=== PATIENT | female | born 1940 | race African-American/Black ===

== ENCOUNTER 2020-02-26 05:46 | Emergency (ER) | payer OTHER ==
[~2020-02-26] VITALS: Ht 170.2 cm; Wt 59.0 kg
[2020-02-26] MEDS ORDERED: CLONIDINE 0.2MG TABLET PO ONE (07:30)
[2020-02-26 08:46] VITALS: BP 150/79
== END 2020-02-26 09:40 | disposition home or self-care (01) ==
LOC: ER 05:46
DX: E11.649 Type 2 diabetes mellitus with hypoglycemia without coma (principal); I10 Essential (primary) hypertension; Z79.4 Long term (current) use of insulin
CPT/HCPCS: 82962; 93005; 99283

== ENCOUNTER 2024-02-12 07:09 | Inpatient (IN) | payer OTHER, MEDICAID, MEDICARE ==
[~2024-02-12] VITALS: Ht 157.5 cm; Wt 45.8 kg
[2024-02-12] VITALS (35 sets, daily range): BP systolic 87–141; BP diastolic 46–130; PULSE 74–101; RESP 11–31; TEMP 36.83628–36.974; O2SAT 94–100
[2024-02-12 07:38] LABS: HEMATOCRIT. 35.1 % (36.0-48.0); HEMOGLOBIN. 10.6 g/dL (12.0-16.0); MEAN CORPUSCULAR HEMOGLOBIN 25.9 pg (28.0-32.0); MEAN CORPUSCULAR HGB CONC 30.3 g/dL (31.0-37.0); MEAN CORPUSCULAR VOLUME 85.6 fL (81.0-99.0); MEAN PLATELET VOLUME 8.1 fl (7.4-10.4); PLATELET 482 x1000/uL (130-400); RED CELL DISTRIBUTION WIDTH 16.4 % (11.6-14.6); WHITE BLOOD COUNT 13.5 x1000/uL (4.5-11.0)
[2024-02-12] MEDS: PIPERACILLIN/TAZO 3.375G/50ML 50 ML IV STA (07:42)
[2024-02-12] MEDS: SODIUM CHLORIDE 0.9% 1,000 ML IV ONE (07:42)
[2024-02-12 07:48] LABS: CHLORIDE 104 mEq/L (98-107); SODIUM 150 mEq/L (136-145)
[2024-02-12 07:49] LABS: CALCIUM 9.7 mg/dL (8.7-10.4)
[2024-02-12] MEDS: ACETAMINOPHEN 650MG SUPP PR SCH (07:50)
[2024-02-12 07:54] LABS: CREATININE 2.2 mg/dL (0.6-1.0); INR 0.9; PROTHROMBIN TIME 10.6 sec (9.6-11.0); UREA NITROGEN BLOOD 87 mg/dL (9-23)
[2024-02-12 07:56] LABS: ALANINE AMINOTRANSFERASE 19 IU/L (10-49); ALBUMIN 3.7 g/dL (3.2-4.8); ASPARTATE AMINOTRANSFERASE 21 IU/L (<34); BILIRUBIN TOTAL 0.2 mg/dL (0.1-1.0); PROTEIN TOTAL 8.4 g/dL (6.0-8.3)
[2024-02-12 07:58] LABS: DIFFERENTIAL COMMENT 1
[2024-02-12 08:04] LABS: GLUCOSE 660 mg/dL (70-105); TROPONIN I HIGH SENSITIVITY 176 ng/L (3.0-34)
[2024-02-12 08:05] LABS: LACTIC ACID 6.9 mmol/L (0.4-2.0)
[2024-02-12 08:12] LABS: CARBON DIOXIDE 26 mEq/L (21-32)
[2024-02-12] MEDS: VANCOMYCIN 1G PREMIX 200 ML IV STA (08:15)
[2024-02-12 08:20] LABS: BETA HYDROXYBUTYRATE 4.9 mMol/L (0.0-0.3)
[2024-02-12] MEDS ORDERED: SODIUM CHLORIDE 0.9% 1,000 ML IV ONE (09:00)
[2024-02-12] MEDS ORDERED: BLOOD SUGAR DIAGNOSTIC STRIP TEST PRN ×2 (09:00→19:15)
[2024-02-12] MEDS ORDERED: MAGNESIUM 2 G PREMIX 50 ML IV PRN ×2 (09:00→19:15)
[2024-02-12] MEDS ORDERED: SODIUM PHOSPHATE 15 MMOL in SODIUM CHLORIDE 0.9% 245 ML IV PRN ×2 (09:00→19:15)
[2024-02-12] MEDS ORDERED: DEXTROSE 50% WATER 50ML SYRINGE IV PRN ×3 (09:00→19:15)
[2024-02-12] MEDS ORDERED: BLOOD SUGAR DIAGNOSTIC STRIP TEST SCH ×2 (09:00→14:30)
[2024-02-12] MEDS ORDERED: INSULIN REGULAR (DRIP) 100 UNITS in SODIUM CHLORIDE 0.9% 99 ML IV SCH ×2 (09:00→19:15)
[2024-02-12 09:10] LABS: CLARITY URINE TURBID (CLEAR); COLOR URINE YELLOW (YELLOW); PH URINE 6.5 (4.5-8.0); PROTEIN URINE 2+ (NEGATIVE); SPECIFIC GRAVITY URINE 1.022 (1.005-1.030)
[2024-02-12 09:11] LABS: GLUCOSE URINE 2+ (NEGATIVE); KETONES URINE TRACE (NEGATIVE); LEUKOCYTE ESTERASE URINE 3+ (NEGATIVE); NITRITE URINE NEGATIVE (NEGATIVE); OCCULT BLOOD URINE 3+ (NEGATIVE); UROBILINOGEN URINE 0.2 E.U./dL (0.2-1.0)
[2024-02-12 09:15] LABS: BG BASE EXCESS -0.3 mmol/L (-2.0-3.0); BG CARBOXYHEMOGLOBIN 0.3 % (0.5-1.5); BG DEOXYHEMOGLOBIN 0.4 % (0.0-5.0); BG FRACTION INSPIRED OXYGEN 100; BG HCO3 ACT 23.8 mmol/L (21.0-28.0); BG METHEMOGLOBIN 0.3 % (0.5-1.5); BG OXYGEN SATURATION 99.6 % (94.0-98.0); BG PCO2 36.5 mmHg (32.0-45.0); BG PH 7.432 (7.350-7.450); BG PO2 174.7 mmHg (83.0-108.0); BG SAMPLE SITE RIGHT RADIAL; BG TOTAL HEMOGLOBIN 9.6 g/dL (12.0-16.0); BG VENT MODE MASK - NRB
[2024-02-12] MEDS: NOREPINEPHRINE 8MG/250ML PMX 250 ML IV ONE (09:17)
[2024-02-12] MEDS: SODIUM CHLORIDE 0.9% 1,000 ML IV SCH (09:17)
[2024-02-12 09:29] LABS: BACTERIA URINE 3+; SQUAMOUS EPITHELIAL CELL URINE 1+ /lpf (RARE/1+); WBC URINE TNTC /hpf (0-2); YEAST URINE NONE SEEN
[2024-02-12] MEDS: LACTATED RINGERS 1,000 ML IV STA (09:32)
[2024-02-12 09:43] LABS: PHOSPHORUS 6.9 mg/dL (2.5-4.9)
[2024-02-12] MEDS: INSULIN REGULAR (HUMULIN R) 1000UNITS/10ML VIAL IV ONE ×2 (09:58→11:13)
[2024-02-12 10:13] LABS: ANISOCYTOSIS 1+; PLATELET ESTIMATE INCREASED; ROULEAUX 1+
[2024-02-12 11:13] LABS: TROPONIN I HIGH SENSITIVITY 330 ng/L (3.0-34)
[2024-02-12] MEDS ORDERED: MAGNESIUM/ALUMINUM HYDROXIDE/SIMETHICONE 30ML UDC PO PRN (12:30)
[2024-02-12] MEDS ORDERED: INSULIN REGULAR 100U/100ML PMX 100 ML IV SCH ×2 (12:30→13:00)
[2024-02-12] MEDS ORDERED: ACETAMINOPHEN 650MG SUPP PR PRN ×2 (12:30)
[2024-02-12] MEDS ORDERED: GUAIFENESIN 200MG/10ML SUGAR FREE UDC PO PRN (12:30)
[2024-02-12] MEDS ORDERED: DOCUSATE SODIUM 100MG CAPSULE PO PRN (12:30)
[2024-02-12] MEDS ORDERED: NITROGLYCERIN 0.4MG TABLET SL SL PRN (12:30)
[2024-02-12] MEDS ORDERED: ONDANSETRON HCL 4MG/2ML INJ IV PRN (12:30)
[2024-02-12] MEDS ORDERED: IPRATROPIUM/ALBUTEROL 0.5-3(2.5)MG/3ML NEB NEB PRN (12:30)
[2024-02-12] MEDS ORDERED: MEROPENEM 1,000 MG in SODIUM CHLORIDE 0.9% 100 ML IV SCH (12:30)
[2024-02-12] MEDS: LACTATED RINGERS 1,000 ML IV SCH (13:00)
[2024-02-12] MEDS: BLOOD SUGAR DIAGNOSTIC STRIP TEST SCH ×2 (13:02→20:26)
[2024-02-12] MEDS: MEROPENEM 500MG/50ML IV SCH (13:34)
[2024-02-12] MEDS: ENOXAPARIN 30MG/0.3ML SYR SUBCUT SCH (13:34)
[2024-02-12] MEDS: PANTOPRAZOLE SODIUM 40 MG/VIAL IV SCH (13:35)
[2024-02-12] MEDS: INSULIN REGULAR 100U/100ML PMX 100 ML IV SCH (13:35)
[2024-02-12] MEDS: KCL 20MEQ/100ML PREMIX 100 ML IV PRN ×2 (13:59→19:16)
[2024-02-12 14:39] LABS: IRON 20 ug/dL (50-170)
[2024-02-12 14:40] LABS: TRIGLYCERIDE 111 mg/dL (0-150)
[2024-02-12 14:41] LABS: LACTATE DEHYDROGENASE 356 IU/L (120-246); LDL CHOLESTEROL 70 mg/dL (5-100)
[2024-02-12 14:42] LABS: CHOLESTEROL 136 mg/dL (<200); HDL CHOLESTEROL 47 mg/dL (>65); TOTAL IRON BINDING CAPACITY 537 ug/dl (250-425)
[2024-02-12 14:45] LABS: FERRITIN 25 ng/mL (10-291); FOLIC ACID (FOLATE) SERUM > 20.00 ng/mL (>5.38)
[2024-02-12 14:46] LABS: THYROID STIMULATING HORMONE 0.87 uIU/mL (0.55-4.78)
[2024-02-12 14:58] LABS: VITAMIN B12 SERUM > 2000 pg/mL (211-911)
[2024-02-12] MEDS: AZITHROMYCIN 500 MG TABLET PO SCH (15:03)
[2024-02-12 17:32] LABS: CARBON DIOXIDE 27 mEq/L (21-32); CHLORIDE 112 mEq/L (98-107); POTASSIUM 4.2 mEq/L (3.5-5.1); SODIUM 153 mEq/L (136-145)
[2024-02-12 17:33] LABS: CALCIUM 9.1 mg/dL (8.7-10.4)
[2024-02-12 17:38] LABS: CREATININE 1.9 mg/dL (0.6-1.0); GLUCOSE 373 mg/dL (70-105); UREA NITROGEN BLOOD 70 mg/dL (9-23)
[2024-02-12 17:39] LABS: CREATINE KINASE MB FRACTION 3.8 ng/mL (0.5-3.6)
[2024-02-12 17:40] LABS: PHOSPHORUS 4.3 mg/dL (2.5-4.9)
[2024-02-12] MEDS ORDERED: POTASSIUM CHLORIDE 40 MEQ in SODIUM CHLORIDE 0.9% 230 ML IV PRN ×2 (18:00→19:15)
[2024-02-12] MEDS: DEXAMETHASONE 10 MG/ML VIAL IV SCH (18:07)
[2024-02-12] MEDS: NOREPINEPHRINE 8MG/250ML PMX 250 ML IV PRN (18:20)
[2024-02-12] MEDS ORDERED: DEXT 5%/0.45% NACL 1000ML 1,000 ML IV SCH (19:00)
[2024-02-12] MEDS ORDERED: KCL 20MEQ/100ML PREMIX 100 ML IV PRN (19:00)
[2024-02-12] MEDS ORDERED: DEXT 5%/LACTATED RINGERS 1,000 ML IV SCH (19:00)
[2024-02-12] MEDS ORDERED: SODIUM CHLORIDE 0.9% 1,000 ML IV SCH (19:15)
[2024-02-12] MEDS ORDERED: DEXT 5%/0.9% NACL 1,000 ML IV SCH (19:15)
[2024-02-12] MEDS: DEXTROSE 50% WATER 50ML SYRINGE IV PRN (21:24)
[2024-02-12] MEDS: ATORVASTATIN CALCIUM 40MG TABLET PO SCH (21:25)
[2024-02-12 22:23] LABS: CREATINE KINASE MB FRACTION 3.1 ng/mL (0.5-3.6)
[2024-02-12 23:01] LABS: CHLORIDE 115 mEq/L (98-107); POTASSIUM 3.7 mEq/L (3.5-5.1); SODIUM 153 mEq/L (136-145)
[2024-02-12 23:02] LABS: CALCIUM 8.6 mg/dL (8.7-10.4); CARBON DIOXIDE 33 mEq/L (21-32)
[2024-02-12 23:07] LABS: CREATININE 1.4 mg/dL (0.6-1.0); GLUCOSE 203 mg/dL (70-105); UREA NITROGEN BLOOD 71 mg/dL (9-23)
[2024-02-12] MEDS: DEXT 5%/0.45% NACL KCL 40MEQ/L 1,000 ML IV SCH (23:45)
[2024-02-13] VITALS (52 sets, daily range): BP systolic 90–138; BP diastolic 47–95; PULSE 65–98; RESP 10–28; TEMP 36.55848–36.83628; O2SAT 97–100
[2024-02-13] MEDS ORDERED: POTASSIUM CHLORIDE 20 MEQ in DEXT 5% WATER 90 ML IV ONE (00:30)
[2024-02-13] MEDS ORDERED: KCL 20MEQ/100ML PREMIX 100 ML IV NR (00:45)
[2024-02-13] MEDS: DEXT 5%/0.45% NACL KCL 20MEQ/L 1,000 ML IV SCH (01:01)
[2024-02-13] MEDS: INSULIN GLARGINE 100 UNITS/ML SUBCUT NR (01:03)
[2024-02-13 05:32] LABS: CARBON DIOXIDE 30 mEq/L (21-32); CHLORIDE 114 mEq/L (98-107); POTASSIUM 4.3 mEq/L (3.5-5.1); SODIUM 151 mEq/L (136-145)
[2024-02-13 05:33] LABS: CALCIUM 8.6 mg/dL (8.7-10.4)
[2024-02-13 05:37] LABS: CREATININE 1.3 mg/dL (0.6-1.0); GLUCOSE 348 mg/dL (70-105)
[2024-02-13 05:38] LABS: UREA NITROGEN BLOOD 59 mg/dL (9-23)
[2024-02-13 05:39] LABS: ALANINE AMINOTRANSFERASE 26 IU/L (10-49); ALBUMIN 2.8 g/dL (3.2-4.8); ASPARTATE AMINOTRANSFERASE 38 IU/L (<34)
[2024-02-13 05:40] LABS: BILIRUBIN TOTAL 0.2 mg/dL (0.1-1.0); PHOSPHORUS 3.2 mg/dL (2.5-4.9); PROTEIN TOTAL 6.3 g/dL (6.0-8.3)
[2024-02-13] MEDS ORDERED: INSULIN REGULAR (HUMULIN R) 1000UNITS/10ML VIAL IV NR (05:45)
[2024-02-13 05:51] LABS: HEMATOCRIT. 29.4 % (36.0-48.0); HEMOGLOBIN. 8.5 g/dL (12.0-16.0); MEAN CORPUSCULAR HEMOGLOBIN 25.3 pg (28.0-32.0); MEAN CORPUSCULAR VOLUME 87.1 fL (81.0-99.0); MEAN PLATELET VOLUME 8.4 fl (7.4-10.4); PLATELET 221 x1000/uL (130-400); RED BLOOD CELL COUNT 3.37 mill/uL (4.2-5.4); RED CELL DISTRIBUTION WIDTH 15.9 % (11.6-14.6); WHITE BLOOD COUNT 13.6 x1000/uL (4.5-11.0)
[2024-02-13] MEDS ORDERED: DEXTROSE 50% WATER 50ML SYRINGE IV PRN (06:00)
[2024-02-13 06:26] LABS: DIFFERENTIAL COMMENT 1
[2024-02-13] MEDS ORDERED: INSULIN LISPRO 100 UNITS/ML SUBCUT ONE (06:30)
[2024-02-13] MEDS: BLOOD SUGAR DIAGNOSTIC STRIP TEST SCH (06:37)
[2024-02-13] MEDS: INSULIN LISPRO 100 UNITS/ML SUBCUT SCH (06:41)
[2024-02-13] MEDS: SODIUM CHLORIDE 0.45% 1,000 ML IV SCH (07:42)
[2024-02-13] MEDS: ASPIRIN 81MG TABLET GT SCH (08:43)
[2024-02-13] MEDS: VANCOMYCIN 500MG/100ML IV SCH (10:20)
[2024-02-13 12:12] LABS: *AMPHETAMINES SCREEN URINE NEGATIVE (NEGATIVE); *BARBITURATES SCREEN URINE NEGATIVE (NEGATIVE); *BENZODIAZEPINES SCREEN URINE NEGATIVE (NEGATIVE); *COCAINE SCREEN URINE NEGATIVE (NEGATIVE); METHADONE URINE SCREEN NEGATIVE (NEGATIVE); OPIATES URINE SCREEN NEGATIVE (NEGATIVE)
[2024-02-13 12:13] LABS: CANNABINOID URINE SCREEN NEGATIVE (NEGATIVE); ECSTASY MDMA SCREEN URINE NEGATIVE (NEGATIVE); PHENCYCLIDINE URINE SCREEN NEGATIVE (NEGATIVE)
[2024-02-13] MEDS: SODIUM CHL 0.45% + KCL 20MEQ/L 1,000 ML IV SCH (14:35)
[2024-02-13 20:00] LABS: NUCLEATED RED BLOOD CELLS 1 /100 WBC; PLATELET ESTIMATE NORMAL
[2024-02-13] MEDS: INSULIN GLARGINE 100 UNITS/ML SUBCUT SCH (21:06)
[2024-02-14] VITALS (35 sets, daily range): BP systolic 94–132; BP diastolic 46–84; PULSE 53–85; RESP 0–24; TEMP 36.114–36.72516; O2SAT 92–100
[2024-02-14 04:28] LABS: CHLORIDE 111 mEq/L (98-107); POTASSIUM 4.9 mEq/L (3.5-5.1); SODIUM 144 mEq/L (136-145)
[2024-02-14 04:29] LABS: CARBON DIOXIDE 27 mEq/L (21-32)
[2024-02-14 04:34] LABS: CREATININE 0.8 mg/dL (0.6-1.0); GLUCOSE 225 mg/dL (70-105); UREA NITROGEN BLOOD 44 mg/dL (9-23)
[2024-02-14] MEDS ORDERED: MEROPENEM 1G/100ML IV SCH (21:00)
[2024-02-14] MEDS: CEFTRIAXONE 1GM/50ML 50 ML IV SCH (21:13)
[2024-02-14] MEDS: METRONIDAZOLE 500MG TABLET PO SCH (21:34)
[2024-02-14 21:59] LABS: BASOPHILS % 0.1 % (0.0-2.0); DIFFERENTIAL COMMENT 0; HEMATOCRIT. 27.2 % (36.0-48.0); HEMOGLOBIN. 8.1 g/dL (12.0-16.0); LYMPHOCYTES % 9.9 % (20.0-50.0); MEAN CORPUSCULAR HGB CONC 29.6 g/dL (31.0-37.0); MEAN CORPUSCULAR VOLUME 84.2 fL (81.0-99.0); MEAN PLATELET VOLUME 8.5 fl (7.4-10.4); MONOCYTES % 3.3 % (2.0-8.0); NEUTROPHILS % 86.7 % (40.0-76.0); PLATELET 213 x1000/uL (130-400); RED BLOOD CELL COUNT 3.23 mill/uL (4.2-5.4); RED CELL DISTRIBUTION WIDTH 15.8 % (11.6-14.6); WHITE BLOOD COUNT 7.9 x1000/uL (4.5-11.0)
[2024-02-15] VITALS: BP 130/71; PULSE 60; RESP 18; TEMP 36.22512; O2SAT 100
[2024-02-15 04:00] VITALS: BP 143/73; PULSE 77; RESP 16; TEMP 36.6696; O2SAT 98
[2024-02-15 07:12] LABS: CHLORIDE 112 mEq/L (98-107); EOSINOPHILS % 0.1 % (0.0-5.0); HEMOGLOBIN. 8.3 g/dL (12.0-16.0); LYMPHOCYTES % 10.4 % (20.0-50.0); MEAN CORPUSCULAR HEMOGLOBIN 25.3 pg (28.0-32.0); MEAN CORPUSCULAR HGB CONC 30.7 g/dL (31.0-37.0); MEAN CORPUSCULAR VOLUME 82.3 fL (81.0-99.0); MONOCYTES % 3.5 % (2.0-8.0); PLATELET 214 x1000/uL (130-400); POTASSIUM 4.7 mEq/L (3.5-5.1); RED BLOOD CELL COUNT 3.28 mill/uL (4.2-5.4); RED CELL DISTRIBUTION WIDTH 15.7 % (11.6-14.6); SODIUM 140 mEq/L (136-145); WHITE BLOOD COUNT 5.9 x1000/uL (4.5-11.0)
[2024-02-15 07:13] LABS: CALCIUM 8.1 mg/dL (8.7-10.4); CARBON DIOXIDE 24 mEq/L (21-32)
[2024-02-15 07:18] LABS: CREATININE 0.6 mg/dL (0.6-1.0)
[2024-02-15 07:19] LABS: GLUCOSE 109 mg/dL (70-105); UREA NITROGEN BLOOD 31 mg/dL (9-23)
[2024-02-15 08:00] VITALS: BP 127/60; PULSE 67; RESP 18; TEMP 36.78072; O2SAT 98
[2024-02-15 08:56] VITALS: BP 127/60; PULSE 67; TEMP 98.2; O2SAT 8
[2024-02-15] MEDS ORDERED: VANCOMYCIN 750MG/150ML (BAXTER) IV SCH (09:00)
[2024-02-15] MEDS: LOSARTAN 50 MG TABLET PO SCH (09:26)
== END 2024-02-15 11:43 | disposition short-term general hospital (02) | DRG 871 ==
LOC: ER 07:17 → EDBEDREQ 09:03 → EDBEDREQSVC 09:03 → MICUNO 11:35 → EDBEDREQ 11:43 → 7WST 02-14 17:55
PROVIDERS: ADMIT Internal Medicine; ATTEND Internal Medicine
DX: A41.89 Other specified sepsis (principal); E11.10 Type 2 diabetes mellitus with ketoacidosis without coma; L89.153 Pressure ulcer of sacral region, stage 3; I21.4 Non-ST elevation (NSTEMI) myocardial infarction; U07.1 COVID-19; R65.21 Severe sepsis with septic shock; N17.0 Acute kidney failure with tubular necrosis; J96.91 Respiratory failure, unspecified with hypoxia; J69.0 Pneumonitis due to inhalation of food and vomit; G92.8 Other toxic encephalopathy; N39.0 Urinary tract infection, site not specified; Z68.1 Body mass index [BMI] 19.9 or less, adult; E11.65 Type 2 diabetes mellitus with hyperglycemia; E88.09 Other disorders of plasma-protein metabolism, not elsewhere classified; I10 Essential (primary) hypertension; R62.7 Adult failure to thrive; L81.9 Disorder of pigmentation, unspecified; D64.9 Anemia, unspecified; Z78.9 Other specified health status; Z79.4 Long term (current) use of insulin; Z86.73 Personal history of transient ischemic attack (TIA), and cerebral infarction without residual deficits; J98.8 Other specified respiratory disorders
CPT/HCPCS: 36415; 36600; 71045; 80048; 80051; 80053; 80061; 80202; 80305; 81003; 82010; 82375; 82550; 82553; 82607; 82728; 82746; 82805; 82962; 83036; 83540; 83550; 83605; 83615; 83735; 83930; 84100; 84145; 84443; 84484; 85025; 85379; 86850; 86900; 87426; 93005; 93970; 99291; J0696; J1100; J1650; J1815; J2185; J2470; J2543; J3370; J3480; J3490; J7030; J7120

== ENCOUNTER 2024-02-28 20:22 | Inpatient (IN) | payer MEDICARE, OTHER ==
[~2024-02-28] VITALS: Ht 165.1 cm; Wt 52.2 kg
[2024-02-28] MEDS: SODIUM CHLORIDE 0.9% 1000ML BAG (SEPSIS BOLUS) IV ONE (20:59)
[2024-02-28 21:04] LABS: BASOPHILS % 0.3 % (0.0-2.0); DIFFERENTIAL COMMENT 0; EOSINOPHILS % 0.1 % (0.0-5.0); HEMATOCRIT. 34.4 % (36.0-48.0); HEMOGLOBIN. 10.1 g/dL (12.0-16.0); MEAN CORPUSCULAR HGB CONC 29.5 g/dL (31.0-37.0); MEAN CORPUSCULAR VOLUME 84.8 fL (81.0-99.0); MEAN PLATELET VOLUME 7.7 fl (7.4-10.4); MONOCYTES % 3.8 % (2.0-8.0); NEUTROPHILS % 81.8 % (40.0-76.0); PLATELET 332 x1000/uL (130-400); RED BLOOD CELL COUNT 4.06 mill/uL (4.2-5.4); WHITE BLOOD COUNT 9.2 x1000/uL (4.5-11.0)
[2024-02-28] MEDS: PIPERACILLIN/TAZO 3.375G/50ML 50 ML IV ONE (21:06)
[2024-02-28 21:11] LABS: POTASSIUM 4.6 mEq/L (3.5-5.1)
[2024-02-28 21:12] LABS: CALCIUM 9.2 mg/dL (8.7-10.4)
[2024-02-28 21:18] LABS: PROTHROMBIN TIME 10.7 sec (9.6-11.0)
[2024-02-28 21:19] LABS: LACTIC ACID 2.5 mmol/L (0.4-2.0)
[2024-02-28 21:20] LABS: BETA HYDROXYBUTYRATE 7.5 mMol/L (0.0-0.3)
[2024-02-28 21:33] LABS: CREATININE 1.4 mg/dL (0.6-1.0)
[2024-02-28 21:44] LABS: BG BASE EXCESS -7.8 mmol/L (-2.0-3.0); BG CARBOXYHEMOGLOBIN 0.3 % (0.5-1.5); BG DEOXYHEMOGLOBIN 3.1 % (0.0-5.0); BG HCO3 ACT 15.7 mmol/L (21.0-28.0); BG METHEMOGLOBIN 0.3 % (0.5-1.5); BG OXYGEN SATURATION 96.9 % (94.0-98.0); BG OXYHEMOGLOBIN 96.3 % (94.0-98.0); BG PCO2 26.3 mmHg (32.0-45.0); BG PH 7.394 (7.350-7.450); BG PO2 97.9 mmHg (83.0-108.0); BG SAMPLE SITE RIGHT BRACHIAL; BG TOTAL HEMOGLOBIN 10.7 g/dL (12.0-16.0); BG VENT MODE MASK - SIMPLE
[2024-02-28] MEDS: SODIUM BICARBONATE 8.4% 50MEQ/50ML SYR IV ONE (21:54)
[2024-02-28] MEDS: INSULIN REGULAR (HUMULIN R) 1000UNITS/10ML VIAL IV ONE (22:57)
[2024-02-28] MEDS ORDERED: VANCOMYCIN 1000MG/250ML 250 ML IV SCH (23:45)
[2024-02-29] VITALS (65 sets, daily range): BP systolic 94–143; BP diastolic 42–98; PULSE 81–120; RESP 15–30; TEMP 35.5584–36.78072; O2SAT 96–100
[2024-02-29] MEDS: VANCOMYCIN 1G PREMIX 200 ML IV NR (00:37)
[2024-02-29] MEDS: NOREPINEPHRINE 8MG/250ML PMX 250 ML IV ONE (00:48)
[2024-02-29] MEDS: SODIUM CHLORIDE 0.9% 1,000 ML IV ONE ×2 (01:58)
[2024-02-29] MEDS ORDERED: BLOOD SUGAR DIAGNOSTIC STRIP TEST SCH (08:45)
[2024-02-29] MEDS ORDERED: INSULIN REGULAR 100U/100ML PMX 100 ML IV SCH (08:45)
[2024-02-29] MEDS ORDERED: DEXTROSE 50% WATER 50ML SYRINGE IV PRN ×3 (08:45→09:00)
[2024-02-29] MEDS ORDERED: MAGNESIUM 2 G PREMIX 50 ML IV PRN (09:00)
[2024-02-29] MEDS ORDERED: BLOOD SUGAR DIAGNOSTIC STRIP TEST PRN (09:00)
[2024-02-29] MEDS ORDERED: SODIUM PHOSPHATE 15 MMOL in SODIUM CHLORIDE 0.9% 245 ML IV PRN (09:00)
[2024-02-29] MEDS ORDERED: DEXT 5%/0.9% NACL 1,000 ML IV SCH (09:00)
[2024-02-29] MEDS ORDERED: CEFTRIAXONE 1GM/50ML 50 ML IV NR (09:00)
[2024-02-29] MEDS ORDERED: KCL 20MEQ/100ML PREMIX 100 ML IV PRN (09:00)
[2024-02-29] MEDS: BLOOD SUGAR DIAGNOSTIC STRIP TEST SCH (09:00)
[2024-02-29 09:39] LABS: HEMATOCRIT. 29.7 % (36.0-48.0); HEMOGLOBIN. 8.6 g/dL (12.0-16.0); MEAN CORPUSCULAR HEMOGLOBIN 24.8 pg (28.0-32.0); MEAN CORPUSCULAR HGB CONC 28.8 g/dL (31.0-37.0); MEAN CORPUSCULAR VOLUME 86.3 fL (81.0-99.0); MEAN PLATELET VOLUME 7.3 fl (7.4-10.4); PLATELET 230 x1000/uL (130-400); RED BLOOD CELL COUNT 3.44 mill/uL (4.2-5.4); RED CELL DISTRIBUTION WIDTH 18.1 % (11.6-14.6); WHITE BLOOD COUNT 9.5 x1000/uL (4.5-11.0)
[2024-02-29 09:45] LABS: CARBON DIOXIDE 11 mEq/L (21-32); CHLORIDE 119 mEq/L (98-107); POTASSIUM 4.2 mEq/L (3.5-5.1); SODIUM 155 mEq/L (136-145)
[2024-02-29 09:46] LABS: CALCIUM 8.2 mg/dL (8.7-10.4)
[2024-02-29 09:50] LABS: CREATININE 1.2 mg/dL (0.6-1.0); GLUCOSE 400 mg/dL (70-105)
[2024-02-29 09:51] LABS: UREA NITROGEN BLOOD 49 mg/dL (9-23)
[2024-02-29 09:52] LABS: ALANINE AMINOTRANSFERASE 9 IU/L (10-49); ALBUMIN 2.7 g/dL (3.2-4.8); ASPARTATE AMINOTRANSFERASE 15 IU/L (<34)
[2024-02-29 09:53] LABS: BILIRUBIN TOTAL 0.2 mg/dL (0.1-1.0); PHOSPHORUS 4.2 mg/dL (2.5-4.9); PROTEIN TOTAL 6.4 g/dL (6.0-8.3)
[2024-02-29 09:54] LABS: DIFFERENTIAL COMMENT 1
[2024-02-29 09:55] LABS: THYROID STIMULATING HORMONE 1.17 uIU/mL (0.55-4.78)
[2024-02-29] MEDS ORDERED: INSULIN REGULAR 100U/100ML PMX 100 ML IV PRN (10:00)
[2024-02-29] MEDS: SODIUM CHLORIDE 0.9% 1,000 ML IV SCH (10:00)
[2024-02-29 10:09] LABS: TROPONIN I HIGH SENSITIVITY 36 ng/L (3.0-34)
[2024-02-29] MEDS ORDERED: CLONIDINE 0.1MG TABLET PO PRN (10:30)
[2024-02-29] MEDS ORDERED: ACETAMINOPHEN 325MG TABLET PO PRN ×2 (10:30)
[2024-02-29] MEDS ORDERED: ONDANSETRON HCL 4MG/2ML INJ IV PRN (10:30)
[2024-02-29] MEDS ORDERED: DOCUSATE SODIUM 100MG CAPSULE PO PRN (10:30)
[2024-02-29] MEDS: DEXTROSE 5% WATER 1,000 ML IV SCH (10:46)
[2024-02-29] MEDS: SODIUM BICARBONATE 8.4% 50MEQ/50ML SYR IV NR (10:46)
[2024-02-29 11:00] LABS: BG BASE EXCESS -15.3 mmol/L (-2.0-3.0); BG CARBOXYHEMOGLOBIN 0.3 % (0.5-1.5); BG DEOXYHEMOGLOBIN 0.4 % (0.0-5.0); BG FRACTION INSPIRED OXYGEN 100; BG METHEMOGLOBIN 0.3 % (0.5-1.5); BG OXYGEN SATURATION 99.6 % (94.0-98.0); BG PCO2 22.2 mmHg (32.0-45.0); BG SAMPLE SITE RIGHT RADIAL; BG TOTAL HEMOGLOBIN 9.5 g/dL (12.0-16.0); BG VENT MODE HIGH FLOW
[2024-02-29 11:08] LABS: TOXIC VACUOLATION 1+
[2024-02-29 11:09] LABS: PLATELET ESTIMATE NORMAL
[2024-02-29 11:10] LABS: ANISOCYTOSIS 1+
[2024-02-29] MEDS: PANTOPRAZOLE SODIUM 40 MG/VIAL IV SCH (11:20)
[2024-02-29 11:26] LABS: *AMPHETAMINES SCREEN URINE NEGATIVE (NEGATIVE)
[2024-02-29 11:27] LABS: *BARBITURATES SCREEN URINE NEGATIVE (NEGATIVE); *BENZODIAZEPINES SCREEN URINE NEGATIVE (NEGATIVE); *COCAINE SCREEN URINE NEGATIVE (NEGATIVE); CANNABINOID URINE SCREEN NEGATIVE (NEGATIVE); ECSTASY MDMA SCREEN URINE NEGATIVE (NEGATIVE); METHADONE URINE SCREEN NEGATIVE (NEGATIVE); OPIATES URINE SCREEN PRESUMPTIVE POSITIVE (NEGATIVE); PHENCYCLIDINE URINE SCREEN NEGATIVE (NEGATIVE)
[2024-02-29] MEDS: SODIUM BICARBONATE 100 MEQ in DEXTROSE 5% WATER 900 ML IV SCH (11:36)
[2024-02-29] MEDS: INSULIN REGULAR 100U/100ML PMX 100 ML IV PRN (12:33)
[2024-02-29 12:47] LABS: BETA HYDROXYBUTYRATE 10.9 mMol/L (0.0-0.3); D-DIMER 13.48 mg/L FEU (<0.50); PROTHROMBIN TIME 11.5 sec (9.6-11.0)
[2024-02-29] MEDS: AZITHROMYCIN 500MG/250ML 250 ML IV SCH (12:57)
[2024-02-29] MEDS: CEFTRIAXONE 1GM/50ML 50 ML IV SCH (12:57)
[2024-02-29 13:36] LABS: CHLORIDE 119 mEq/L (98-107)
[2024-02-29 13:38] LABS: CARBON DIOXIDE 14 mEq/L (21-32)
[2024-02-29 13:53] LABS: SODIUM 156 mEq/L (136-145)
[2024-02-29] MEDS: DILTIAZEM HCL 30MG TABLET PO SCH (14:00)
[2024-02-29 16:58] LABS: CHLORIDE 119 mEq/L (98-107)
[2024-02-29 16:59] LABS: CARBON DIOXIDE 18 mEq/L (21-32)
[2024-02-29 17:25] LABS: SODIUM 156 mEq/L (136-145)
[2024-02-29 18:31] LABS: CLARITY URINE TURBID (CLEAR); COLOR URINE YELLOW (YELLOW)
[2024-02-29 18:32] LABS: PH URINE 5.5 (4.5-8.0); PROTEIN URINE TRACE (NEGATIVE); SPECIFIC GRAVITY URINE 1.011 (1.005-1.030)
[2024-02-29 18:33] LABS: GLUCOSE URINE 2+ (NEGATIVE); KETONES URINE 1+ (NEGATIVE)
[2024-02-29 18:34] LABS: NITRITE URINE NEGATIVE (NEGATIVE); OCCULT BLOOD URINE 1+ (NEGATIVE); UROBILINOGEN URINE 0.2 E.U./dL (0.2-1.0)
[2024-02-29 18:35] LABS: LEUKOCYTE ESTERASE URINE 2+ (NEGATIVE)
[2024-02-29 19:02] LABS: BACTERIA URINE 3+; SQUAMOUS EPITHELIAL CELL URINE FEW /lpf (RARE/1+); WBC URINE TNTC /hpf (0-2); YEAST URINE 4+
[2024-02-29] MEDS: POTASSIUM CHLORIDE 40 MEQ in SODIUM CHLORIDE 0.9% 230 ML IV PRN (19:52)
[2024-02-29] MEDS ORDERED: INSULIN GLARGINE 100 UNITS/ML SUBCUT SCH (22:00)
[2024-02-29 23:38] LABS: CHLORIDE 119 mEq/L (98-107); POTASSIUM 3.5 mEq/L (3.5-5.1)
[2024-02-29 23:39] LABS: CARBON DIOXIDE 25 mEq/L (21-32)
[2024-02-29 23:57] LABS: SODIUM 156 mEq/L (136-145)
[2024-02-29 23:58] LABS: CLARITY URINE TURBID (CLEAR); COLOR URINE YELLOW (YELLOW); GLUCOSE URINE 3+ (NEGATIVE); KETONES URINE 1+ (NEGATIVE); LEUKOCYTE ESTERASE URINE 3+ (NEGATIVE); NITRITE URINE NEGATIVE (NEGATIVE); OCCULT BLOOD URINE 2+ (NEGATIVE); PROTEIN URINE 3+ (NEGATIVE); UROBILINOGEN URINE 0.2 E.U./dL (0.2-1.0)
[2024-03-01] VITALS (104 sets, daily range): BP systolic 92–135; BP diastolic 48–79; PULSE 72–111; RESP 14–29; TEMP 36.6696–37.11408; O2SAT 94–100
[2024-03-01 00:05] LABS: BACTERIA URINE 1+; SQUAMOUS EPITHELIAL CELL URINE 1+ /lpf (RARE/1+); WBC URINE TNTC /hpf (0-2); YEAST URINE 2+
[2024-03-01 00:09] LABS: *AMPHETAMINES SCREEN URINE NEGATIVE (NEGATIVE); *BARBITURATES SCREEN URINE NEGATIVE (NEGATIVE); *BENZODIAZEPINES SCREEN URINE NEGATIVE (NEGATIVE); *COCAINE SCREEN URINE NEGATIVE (NEGATIVE); METHADONE URINE SCREEN NEGATIVE (NEGATIVE)
[2024-03-01 00:10] LABS: CANNABINOID URINE SCREEN NEGATIVE (NEGATIVE); ECSTASY MDMA SCREEN URINE NEGATIVE (NEGATIVE); OPIATES URINE SCREEN PRESUMPTIVE POSITIVE (NEGATIVE); PHENCYCLIDINE URINE SCREEN NEGATIVE (NEGATIVE)
[2024-03-01] MEDS ORDERED: DEXTROSE 50% WATER 50ML SYRINGE IV PRN (00:15)
[2024-03-01] MEDS: INSULIN LISPRO 100 UNITS/ML SUBCUT SCH (00:34)
[2024-03-01] MEDS: BLOOD SUGAR DIAGNOSTIC STRIP TEST SCH (00:34)
[2024-03-01] MEDS: INSULIN GLARGINE 100 UNITS/ML SUBCUT SCH (00:59)
[2024-03-01] MEDS: ACETYLCYSTEINE 200MG/ML 20% VIAL 4ML INH SCH (01:54)
[2024-03-01] MEDS: IPRATROPIUM/ALBUTEROL 0.5-3(2.5)MG/3ML NEB HHN PRN (01:54)
[2024-03-01 05:59] LABS: PROTHROMBIN TIME 11.3 sec (9.6-11.0)
[2024-03-01 06:00] LABS: BASOPHILS % 0.1 % (0.0-2.0); EOSINOPHILS % 0.2 % (0.0-5.0); HEMATOCRIT. 30.9 % (36.0-48.0); HEMOGLOBIN. 9.3 g/dL (12.0-16.0); LYMPHOCYTES % 9.6 % (20.0-50.0); MEAN CORPUSCULAR HEMOGLOBIN 24.9 pg (28.0-32.0); MEAN CORPUSCULAR HGB CONC 30.2 g/dL (31.0-37.0); MEAN CORPUSCULAR VOLUME 82.5 fL (81.0-99.0); MEAN PLATELET VOLUME 7.6 fl (7.4-10.4); MONOCYTES % 6.2 % (2.0-8.0); NEUTROPHILS % 83.9 % (40.0-76.0); PLATELET 138 x1000/uL (130-400); RED BLOOD CELL COUNT 3.74 mill/uL (4.2-5.4); RED CELL DISTRIBUTION WIDTH 17.7 % (11.6-14.6); WHITE BLOOD COUNT 6.2 x1000/uL (4.5-11.0)
[2024-03-01 06:03] LABS: CHLORIDE 117 mEq/L (98-107); POTASSIUM 3.9 mEq/L (3.5-5.1); SODIUM 155 mEq/L (136-145)
[2024-03-01 06:04] LABS: CALCIUM 8.4 mg/dL (8.7-10.4); CARBON DIOXIDE 27 mEq/L (21-32)
[2024-03-01 06:08] LABS: IRON 17 ug/dL (50-170)
[2024-03-01 06:09] LABS: GLUCOSE 133 mg/dL (70-105); UREA NITROGEN BLOOD 45 mg/dL (9-23)
[2024-03-01 06:10] LABS: FOLIC ACID (FOLATE) SERUM 16.43 ng/mL (>5.38)
[2024-03-01 06:11] LABS: FERRITIN 36 ng/mL (10-291)
[2024-03-01 06:11] LABS: ALANINE AMINOTRANSFERASE 10 IU/L (10-49); ALBUMIN 2.8 g/dL (3.2-4.8); ASPARTATE AMINOTRANSFERASE 21 IU/L (<34); PHOSPHORUS 1.5 mg/dL (2.5-4.9)
[2024-03-01 06:12] LABS: BILIRUBIN TOTAL 0.2 mg/dL (0.1-1.0); PROTEIN TOTAL 6.4 g/dL (6.0-8.3); TOTAL IRON BINDING CAPACITY 378 ug/dl (250-425)
[2024-03-01 06:18] LABS: BILIRUBIN DIRECT < 0.1 mg/dL (<=3.0)
[2024-03-01 06:19] LABS: VITAMIN B12 SERUM > 2000 pg/mL (211-911)
[2024-03-01 06:40] LABS: DIFFERENTIAL COMMENT 1
[2024-03-01 08:44] LABS: BG BASE EXCESS 2.6 mmol/L (-2.0-3.0); BG CARBOXYHEMOGLOBIN 1.6 % (0.5-1.5); BG DEOXYHEMOGLOBIN 3.7 % (0.0-5.0); BG FRACTION INSPIRED OXYGEN 50; BG HCO3 ACT 25.7 mmol/L (21.0-28.0); BG METHEMOGLOBIN 0.4 % (0.5-1.5); BG OXYGEN SATURATION 96.2 % (94.0-98.0); BG OXYHEMOGLOBIN 94.3 % (94.0-98.0); BG PCO2 32.4 mmHg (32.0-45.0); BG PH 7.517 (7.350-7.450); BG PO2 75.6 mmHg (83.0-108.0); BG SAMPLE SITE RIGHT RADIAL; BG TOTAL HEMOGLOBIN 6.4 g/dL (12.0-16.0); BG VENT MODE HIGH FLOW
[2024-03-01] MEDS: POTASSIUM PHOSPHATE 30 MMOL in DEXT 5% WATER 490 ML IV ONE (09:44)
[2024-03-01 10:27] LABS: HEMATOCRIT 26.2 % (36.0-48.0); HEMOGLOBIN 8.2 g/dL (12.0-16.0); MEAN CORPUSCULAR HGB CONC 31.2 g/dL (31.0-37.0); MEAN CORPUSCULAR VOLUME 80.1 fL (81.0-99.0); PLATELET 117 x1000/uL (130-400); RED BLOOD CELL COUNT 3.27 mill/uL (4.2-5.4); RED CELL DISTRIBUTION WIDTH 17.4 % (11.6-14.6); WHITE BLOOD COUNT 6.2 x1000/uL (4.5-11.0)
[2024-03-01] MEDS: DEXTROSE 5% WATER 1,000 ML IV SCH (11:15)
[2024-03-01] MEDS ORDERED: CEFEPIME 1GM/50ML 50 ML IV SCH (13:00)
[2024-03-01] MEDS: CEFEPIME 2GM/100ML 100 ML IV SCH (14:54)
[2024-03-01] MEDS: VANCOMYCIN 1G PREMIX 200 ML IV SCH (14:54)
[2024-03-01] MEDS: IPRATROPIUM/ALBUTEROL 0.5-3(2.5)MG/3ML NEB HHN SCH (16:17)
[2024-03-01] MEDS ORDERED: DIATR MEGLU/DIATRIZOATE SOLN 30ML ONE (19:16)
[2024-03-02] VITALS (74 sets, daily range): BP systolic 92–131; BP diastolic 31–86; PULSE 60–113; RESP 10–40; TEMP 36.3918–36.55848; O2SAT 96–100
[2024-03-02 05:17] LABS: CHLORIDE 111 mEq/L (98-107); POTASSIUM 3.4 mEq/L (3.5-5.1); SODIUM 143 mEq/L (136-145)
[2024-03-02 05:18] LABS: CALCIUM 7.7 mg/dL (8.7-10.4); CARBON DIOXIDE 25 mEq/L (21-32)
[2024-03-02 05:23] LABS: CREATININE 0.6 mg/dL (0.6-1.0); GLUCOSE 125 mg/dL (70-105); UREA NITROGEN BLOOD 27 mg/dL (9-23)
[2024-03-02 05:24] LABS: ALBUMIN 2.3 g/dL (3.2-4.8)
[2024-03-02 05:30] LABS: PREALBUMIN < 5.0 mg/dl (10.0-40.0)
[2024-03-02 06:02] LABS: BASOPHILS % 0.1 % (0.0-2.0); DIFFERENTIAL COMMENT 0; EOSINOPHILS % 1.2 % (0.0-5.0); HEMATOCRIT. 25.8 % (36.0-48.0); LYMPHOCYTES % 12.1 % (20.0-50.0); MEAN CORPUSCULAR HEMOGLOBIN 24.6 pg (28.0-32.0); MEAN CORPUSCULAR HGB CONC 30.7 g/dL (31.0-37.0); MEAN CORPUSCULAR VOLUME 80.2 fL (81.0-99.0); MEAN PLATELET VOLUME 7.2 fl (7.4-10.4); MONOCYTES % 3.6 % (2.0-8.0); PLATELET 70 x1000/uL (130-400); RED BLOOD CELL COUNT 3.22 mill/uL (4.2-5.4); RED CELL DISTRIBUTION WIDTH 17.5 % (11.6-14.6); WHITE BLOOD COUNT 6.9 x1000/uL (4.5-11.0)
[2024-03-02 07:02] LABS: HEMOGLOBIN. 7.9 g/dL (12.0-16.0)
[2024-03-02] MEDS ORDERED: POTASSIUM CHLORIDE 20 MEQ in DEXT 5% WATER 90 ML IV ONE (07:30)
[2024-03-02] MEDS: KCL 20MEQ/100ML PREMIX 100 ML IV NR (08:55)
[2024-03-02] MEDS: VANCOMYCIN 750MG PREMIX 150 ML IV SCH (08:55)
[2024-03-02 09:34] LABS: BG BASE EXCESS 1.6 mmol/L (-2.0-3.0); BG CARBOXYHEMOGLOBIN 0.3 % (0.5-1.5); BG DEOXYHEMOGLOBIN 0.9 % (0.0-5.0); BG FRACTION INSPIRED OXYGEN 36; BG HCO3 ACT 24.8 mmol/L (21.0-28.0); BG METHEMOGLOBIN 0.3 % (0.5-1.5); BG OXYGEN SATURATION 99.1 % (94.0-98.0); BG OXYHEMOGLOBIN 98.5 % (94.0-98.0); BG PCO2 33.1 mmHg (32.0-45.0); BG PH 7.492 (7.350-7.450); BG PO2 140.9 mmHg (83.0-108.0); BG SAMPLE SITE RIGHT RADIAL; BG TOTAL HEMOGLOBIN 9.1 g/dL (12.0-16.0); BG VENT MODE NASAL CANNULA
[2024-03-02] MEDS: KCL 20MEQ/100ML PREMIX 100 ML IV SCH (11:08)
== END 2024-03-02 21:15 | disposition short-term general hospital (02) | DRG 871 ==
LOC: ER 20:22 → MICUSO 23:45 → EDBEDREQ 02-29 00:25 → EDBEDREQSVC 02-29 00:25 → EDBEDREQTM 02-29 00:25
PROVIDERS: ADMIT Internal Medicine; ATTEND Internal Medicine
PROC: 5A0945A Assistance with Respiratory Ventilation, 24-96 Consecutive Hours, High Flow/Velocity Cannula (ICD-10-PCS; principal; 2024-02-28)
DX: A41.9 Sepsis, unspecified organism (principal); E11.10 Type 2 diabetes mellitus with ketoacidosis without coma; G93.41 Metabolic encephalopathy; J96.01 Acute respiratory failure with hypoxia; J18.9 Pneumonia, unspecified organism; N17.9 Acute kidney failure, unspecified; E87.0 Hyperosmolality and hypernatremia; B37.49 Other urogenital candidiasis; Z43.1 Encounter for attention to gastrostomy; E46 Unspecified protein-calorie malnutrition; R64 Cachexia; Z66 Do not resuscitate; Z20.822 Contact with and (suspected) exposure to COVID-19; Z74.01 Bed confinement status; R13.10 Dysphagia, unspecified; R65.20 Severe sepsis without septic shock; D50.9 Iron deficiency anemia, unspecified; E83.39 Other disorders of phosphorus metabolism; R62.7 Adult failure to thrive; D69.6 Thrombocytopenia, unspecified; L89.150 Pressure ulcer of sacral region, unstageable; L89.116 Pressure-induced deep tissue damage of right upper back; E11.51 Type 2 diabetes mellitus with diabetic peripheral angiopathy without gangrene; Z86.73 Personal history of transient ischemic attack (TIA), and cerebral infarction without residual deficits; F03.90 Unspecified dementia, unspecified severity, without behavioral disturbance, psychotic disturbance, mood disturbance, and anxiety; I10 Essential (primary) hypertension; Z68.30 Body mass index [BMI] 30.0-30.9, adult; Z87.891 Personal history of nicotine dependence; Z98.84 Bariatric surgery status
CPT/HCPCS: 36415; 36600; 71045; 74018; 80048; 80051; 80053; 80061; 80076; 80305; 81003; 82010; 82040; 82270; 82375; 82607; 82728; 82746; 82805; 82962; 83036; 83540; 83550; 83605; 83735; 83880; 83930; 84100; 84134; 84145; 84443; 84484; 85025; 85027; 85044; 85379; 86850; 86900; 86920; 87070; 87077; 87106; 87186; 87426; 93005; 94640; 99291; A6261; J0456; J0692; J0696; J1815; J2470; J2543; J3370; J3480; J3490; J7030; J7050; J7060; J7070; J7608; Q9963